=== PATIENT | female | born 1945 | race Caucasian/White ===

== ENCOUNTER 2017-02-17 14:24 | Inpatient (IN) ==
[2017-02-17 17:43] LABS: MANUAL DIFF NEEDED? NO
[2017-02-17 17:53] LABS: BASO% 0.4 % (0.0-0.8); EOS% 1.2 % (0.0-10.0); HEMATOCRIT 42.2 % (37.0-47.0); HEMOGLOBIN 14.4 g/dL (12.0-16.0); IMM GRAN# 0.08 X1000 (0.0-0.04); IMM GRAN% 0.5 % (0.0-0.5); LYMPH# 3.12 X1000 (1.2-3.4); MCH 32.7 PG (27-31); MCHC 34.1 g/dL (33-37); MCV 95.7 FL (81-99); MONO# 0.96 X1000 (0.11-0.59); MONO% 5.5 % (1.7-9.3); NEUT% 74.4 % (42.2-75.2); PLT 559 X1000 (130-400); RBC 4.41 XMIL (4.2-5.4)
[2017-02-17 17:55] LABS: INR 0.99; PROTIME 10.4 Seconds (9.2-11.7)
[2017-02-17 18:08] LABS: ALBUMIN 3.5 g/dL (3.5-5.0); CALCIUM 8.8 mg/dL (8.8-10.2); POTASSIUM 3.7 mmol/L (3.5-5.1); TOTAL BILIRUBIN 0.39 mg/dL (0.20-1.00)
[2017-02-17] MEDS: PROTONIX IV SCH (18:24)
[2017-02-17] MEDS: NS 1,000 ML IV SCH (18:24)
[2017-02-17] MEDS: FLAGYL 500 MG/NS 500 MG/100 ML IVPB IV SCH (18:24)
[2017-02-17] MEDS: LEVAQUIN 500 MG/D5W 500 MG/100 ML IVPB IV SCH (21:05)
--- NOTE | 2017-02-17 22:02 | HISTORY AND PHYSICAL ---
CHIEF COMPLAINT: Left lower quadrant pain. Fever. Associated with nausea, not eating. Last bowel movement 2 days ago. HISTORY OF PRESENT ILLNESS: She is a 71-year-old pleasant white female who was evaluated in my office today with two week history of lower abdominal pain, fever for the last 2 weeks. The patient is very tender. She has kidney stones and diverticulitis. She was seen before by Dr. Quintana and Dr. Shannon. Basically admitted to the hospital for possible diverticulitis and possible stone. White cell count is high. She is started on IV fluids and waiting for the CT scan of the abdomen and pelvis. Based on the CT, further recommendations will be followed. PAST MEDICAL HISTORY: Atypical chest pain. Last stress test was negative in March 2005. Hypertension. Kidney stones. History of rheumatoid arthritis under the care of Dr. Khan. Paroxysmal SVT. Tobacco abuse. PAST SURGICAL HISTORY: Hemorrhoidectomy. Gallbladder surgery. Hysterectomy. Four back surgeries. MEDICATIONS IN MY OFFICE: Amlodipine 5 mg daily, benazepril 40 daily, Klonopin 0.5 b.i.d., Flexeril 10 at bedtime, , folic acid 400 mcg daily, loratadine 10 mg daily, methotrexate 2.5 mg 4 tablets once a week by Dr. Khan, metoprolol 50 b.i.d., [place] 10, 3 times daily, potassium citrate 1 tablet daily, Dyazide 1 tablet daily, vitamin B12, 1 tablet daily. ALLERGIES: Demerol. Morphine. IV and contrast dyes. SOCIAL HISTORY: Lives in [place]. 2 kids. Smoking half a pack a day for 40 years. No alcohol abuse. FAMILY HISTORY: Father at the age of 88. Mom of aneurysm of the brain at 62. HEALTH MAINTENANCE: Flu vaccine declined. Pneumonia vaccine declined. Last mammography 2007. REVIEW OF SYSTEMS: HEENT: No headache. No vision problem. No earache. No sore throat. Neck: No goiter. No lymphadenopathy. No bruit. Cardiopulmonary: No chest pain, shortness of breath, PND, orthopnea. Gastrointestinal: Nausea, abdominal pain on the left side. No diarrhea. Last BM was yesterday. : History of kidney stones. No hematuria or dysuria. Extremities: No swelling of feet. Chronic back pain and joints under Dr. Khan. Neurologic: No focal symptoms or weakness. PHYSICAL EXAMINATION: VITAL SIGNS: Stable. 5 feet 3, 146 pounds. HEENT: Atraumatic, normocephalic. Pupils are equal, reactive to light. Dry mucous membranes. NECK: Supple. No lymphadenopathy. No goiter. No bruit. CHEST: Bilateral air entry. No rales, no wheezing. HEART: Sounds are regular. ABDOMEN: Belly is soft. Tender in the left lower quadrant with slightly guarding. No signs of peritonitis. RECTAL: Deferred. EXTREMITIES: No peripheral edema, cyanosis, clubbing. NEUROLOGIC: No obvious deficits noted. INVESTIGATIONS: White cell count 17, hematocrit 42, platelets 559,000. PT/INR is normal. SMA7 is normal. Creatinine 1. Glucose 113, LFTs were normal. Urinalysis pending. CT scan of the abdomen and pelvis pending. ASSESSMENT AND PLAN: 1. A 71-year-old white female, admitted to the hospital with left lower quadrant pain, elevated white cell count in context of previous diverticulitis and kidney stones. Plan is intravenous fluids, intravenous antibiotics. Based on the computed tomography, further recommendations will be followed. 2. Chronic tobacco abuse. Quit smoking. 3. Vitamin B12 deficiency. On replacement. 4. History of paroxysmal supraventricular tachycardia under the care of Dr. Galdamez , on metoprolol. 5. Hypertension, on Lotensin and amlodipine. 6. Postmenopausal, on hormone replacement therapy. 7. Rheumatoid arthritis, on methotrexate and folic acid by Dr. Khan. 8. History of vocal polyps, stable. 9. Right thyroid nodule was negative. 10. Chronic anxiety, on anxiolytics. I will follow up. cc: Jeremy Badillo MD MTDD
[2017-02-17] MEDS: NORCO-10 PO PRN (22:34)
[2017-02-17] MEDS: NICODERM PATCH TD SCH (22:34)
[2017-02-18] MEDS: FLAGYL 500 MG/NS 500 MG/100 ML IVPB IV SCH ×3 (03:16→18:19)
[2017-02-18] MEDS: NORCO-10 PO PRN (03:16)
[2017-02-18 05:20] LABS: ALLEN TEST YES; BE 0.3 mmoll (-3.0-3.0); BLOOD TYPE ARTERIAL; DRAW SITE R RADIAL; PCO2(98.6) 38 mmHg (35-45); PO2(98.6) 71 mmHg (60-100); SAMPLE BLOOD; SAO2 97.9 % (95.0-100.0); THB 12.9 g/dL (11.5-17.4); pH(98.6) 7.42 (7.35-7.45)
[2017-02-18 05:21] LABS: MODALITY ROOM AIR
[2017-02-18 06:51] LABS: MANUAL DIFF NEEDED? NO
[2017-02-18 07:03] LABS: BASO% 0.4 % (0.0-0.8); EOS% 4.1 % (0.0-10.0); HEMATOCRIT 37.9 % (37.0-47.0); HEMOGLOBIN 12.8 g/dL (12.0-16.0); IMM GRAN# 0.04 X1000 (0.0-0.04); IMM GRAN% 0.3 % (0.0-0.5); LYMPH# 2.81 X1000 (1.2-3.4); MCH 32.5 PG (27-31); MCHC 33.8 g/dL (33-37); MCV 96.2 FL (81-99); MONO# 1.21 X1000 (0.11-0.59); MONO% 9.9 % (1.7-9.3); NEUT% 62.3 % (42.2-75.2); PLT 499 X1000 (130-400); RBC 3.94 XMIL (4.2-5.4)
[2017-02-18 07:25] LABS: AGAP 11; BUN 15 mg/dL (8-22); CALCIUM 8.5 mg/dL (8.8-10.2); CHLORIDE 100 mmol/L (98-107); COSMO 274; POTASSIUM 3.5 mmol/L (3.5-5.1); SODIUM 137 mmol/L (136-145); TCO2 26 mmol/L (25-35)
[2017-02-18] MEDS ORDERED: ZOFRAN IV PRN (08:03)
--- NOTE | 2017-02-18 08:25 | Diag Imaging Result Document ---
PROCEDURE NAME: ABDOMEN/PELVIS W/O CONTRAST - 02/17/2017 CT UROGRAM WITHOUT CONTRAST: FINDINGS: There are atelectatic and fibrotic changes in the lung bases. There is a calcified granuloma in the left posterior costophrenic sulcus. The atelectasis is slightly worse than on 05/23/2016. There are granulomata in the spleen. There is extensive vascular calcification including pipe stem type calcification in the celiac and proximal superior mesenteric artery. There are also dense calcifications in the proximal renal arteries bilaterally. Postsurgical changes are seen in the lower lumbar spine which produce some beam-hardening artifact. There is an apparent cystic lesion in the posterior right hepatic lobe which has not changed significantly since the previous study. There are renal vascular calcifications on the left side. There may be a stone in the collecting system of the right kidney. However there are also likely vascular calcifications within the kidney. No hydronephrosis is present. There is no evidence of bowel obstruction. There is some stranding around the descending colon as well as diverticula and apparent mucosal thickening. This is more prominent than on the previous study. There is marked inflammatory change in the fat around the sigmoid colon where there are numerous large diverticula. This is likely to represent a focus of diverticulitis which was not present at the time of the previous study. No discrete abscess is identified. There is no evidence of free fluid. There is some heterotopic bone formation adjacent to the ischial tuberosities. This was also present previously. There are spondylotic changes in the lumbar spine. No acute bony abnormalities are demonstrated. IMPRESSION: Mild sigmoid diverticulitis. No evidence of obstructive uropathy. Right nephrolithiasis. Slightly worsened right lower lobe atelectasis. The findings were discussed with Dr. Badillo at 0730 hours.
[2017-02-18] MEDS: SODIUM CHLORIDE 0.9% INJ SCH ×2 (08:28→18:19)
[2017-02-18] MEDS: NICODERM PATCH TD SCH (08:29)
[2017-02-18] MEDS: NS 1,000 ML IV SCH (11:20)
[2017-02-18] MEDS: KLONOPIN PO SCH ×2 (13:19→21:04)
[2017-02-18] MEDS: PROTONIX IV SCH (18:19)
--- NOTE | 2017-02-18 19:33 | PROGRESS NOTE ---
DATE: 02/18/2017 SUBJECTIVE: Interval history: Patient continues to have left lower quadrant pain. CT scan of the abdomen and pelvis was done. She had nausea this morning. She is withdrawing from chronic pain medications. REVIEW OF SYSTEMS: HEENT: No headache. No dizziness. Cardiopulmonary: No chest pain. No shortness of breath. Gastrointestinal: Left lower quadrant pain. No bleeding per rectum. Genitourinary: No history of hesitancy, frequency. Extremities: No swelling of feet. Neurologic Examination: No obvious focal weakness. PAST MEDICAL HISTORY: Reviewed. PAST SURGICAL HISTORY: Reviewed. MEDICATIONS: Reviewed. PHYSICAL EXAMINATION: Vital Signs: She is afebrile, blood pressure is 150/64, not in respiratory distress. HEENT Examination: Within normal limits. Neck: Supple. No lymphadenopathy. Chest: Clear to auscultation. Heart: Sounds are regular. Abdomen: Belly is soft. Tender in the left lower quadrant area. No signs of peritonitis. Extremities: No peripheral edema, cyanosis, clubbing. Neurologic: No obvious neurological deficits. INVESTIGATIONS: White cell count 12, hematocrit 37, platelets 499,000. ABG on room air: pH is 7.42, pCO2 of 38 PO2 of 71, bicarbonate 25, SMA 7 is normal, calcium 8.5. CT scan of the abdomen and pelvis reviewed with radiologist, Dr. Barajas. Sigmoid diverticulitis. No obstructive uropathy noted. Right kidney stones. Slight worsening of right lower lobe atelectasis. ASSESSMENT AND PLAN: 1. Abdominal pain due to sigmoid diverticulitis. Continue IV Levaquin and IV Flagyl. 2. Dehydration. IV fluids. 3. History of kidney stones, stable. 4. Diet: Clear liquids. 5. Resume her home medications with Percocet and Klonopin. 6. Nausea. We will use the Zofran as needed and slowly reconcile her home medications. LEVEL OF DOCUMENTATION: 35 minutes. cc: Jeremy Badillo MD
[2017-02-18] MEDS ORDERED: KLONOPIN PO SCH (21:00)
[2017-02-18] MEDS: LEVAQUIN 500 MG/D5W 500 MG/100 ML IVPB IV SCH (21:04)
[2017-02-18] MEDS: NORVASC PO SCH (23:41)
[2017-02-19] MEDS: FLAGYL 500 MG/NS 500 MG/100 ML IVPB IV SCH ×3 (02:13→18:13)
[2017-02-19 06:36] LABS: MANUAL DIFF NEEDED? NO
[2017-02-19 06:51] LABS: BASO% 0.6 % (0.0-0.8); EOS# 0.41 X1000 (0.0-0.7); EOS% 4.7 % (0.0-10.0); HEMATOCRIT 39.2 % (37.0-47.0); HEMOGLOBIN 13.1 g/dL (12.0-16.0); IMM GRAN# 0.02 X1000 (0.0-0.04); IMM GRAN% 0.2 % (0.0-0.5); LYMPH# 2.12 X1000 (1.2-3.4); LYMPH% 24.3 % (20.5-51.1); MCH 32.2 PG (27-31); MCHC 33.4 g/dL (33-37); MCV 96.3 FL (81-99); MONO# 1.19 X1000 (0.11-0.59); MONO% 13.7 % (1.7-9.3); MPV 9.3 FL (7.4-10.4); NEUT% 56.5 % (42.2-75.2); PLT 496 X1000 (130-400); RBC 4.07 XMIL (4.2-5.4)
[2017-02-19] MEDS ORDERED: FOLIC ACID PO SCH (09:00)
[2017-02-19] MEDS ORDERED: LOTENSIN PO SCH (09:00)
[2017-02-19] MEDS ORDERED: VITAMIN B-12 PO SCH (09:00)
[2017-02-19] MEDS ORDERED: ESTRACE PO SCH (09:00)
[2017-02-19] MEDS ORDERED: LOPRESSOR PO SCH (09:00)
--- NOTE | 2017-02-19 09:01 | PROGRESS NOTE ---
DATE: 02/19/2017 SUBJECTIVE: Patient is slowly improving. Abdominal pain is improving. REVIEW OF SYSTEMS: Complains of shoulder pain, back pain, ongoing chronic joint pains. Denies of any chest pain. PHYSICAL EXAMINATION: Vital Signs: Stable, afebrile. Pulse is 74, blood pressure is 160/82. HEENT: Examination within normal limits. Neck: Supple. No lymphadenopathy. Chest: Clear to auscultation. Heart: Heart sounds are regular. Abdomen: Belly is soft and decreased tenderness in the left lower quadrant. No signs of peritonitis. Neurologic: Examination nonfocal. INVESTIGATIONS: White cell count came down to 8.7, hematocrit 39, platelets 496,000. ABG: PH is 7.42, pCO2 38, PO2 71. SMA 7 is normal. ASSESSMENT AND PLAN: 1. Diverticulitis is improving on Levaquin and Flagyl. Advance the diet as tolerated. 2. Reconcile home medications. 3. Chronic pain, on Percocet. 4. Followup on urine cultures is negative and will be discharged in the morning if she tolerates the diet. Followup outpatient. 5. Level of documentation, 25 minutes. cc: Jeremy Badillo MD
[2017-02-19] MEDS: NORVASC PO SCH ×2 (09:27→20:54)
[2017-02-19] MEDS: NICODERM PATCH TD SCH (09:27)
[2017-02-19] MEDS: KLONOPIN PO SCH ×2 (09:28→20:54)
[2017-02-19] MEDS: NS 1,000 ML IV SCH ×2 (09:33→16:26)
[2017-02-19] MEDS: PERCOCET-10 PO PRN ×3 (15:54→22:10)
[2017-02-19] MEDS: PROTONIX IV SCH (18:14)
[2017-02-19] MEDS: SODIUM CHLORIDE 0.9% INJ SCH (18:14)
[2017-02-19] MEDS: LEVAQUIN 500 MG/D5W 500 MG/100 ML IVPB IV SCH (20:54)
[2017-02-20] MEDS: FLAGYL 500 MG/NS 500 MG/100 ML IVPB IV SCH (02:09)
[2017-02-20 04:39] VITALS: BP 181/76
[2017-02-20] MEDS: NS 1,000 ML IV SCH (05:18)
[2017-02-20] MEDS: PERCOCET-10 PO PRN (06:44)
[2017-02-20] MEDS ORDERED: PNEUMOVAX 23 IM ONE (08:21)
--- NOTE | 2017-02-20 22:15 | DISCHARGE SUMMARY ---
ADMISSION DATE: 02/17/2017 DISCHARGE DATE: 02/20/2017 DISCHARGING DIAGNOSIS: Abdominal pain due to sigmoid diverticulitis. SECONDARY DIAGNOSES: 1. Hypertension. 2. History of kidney stones. 3. History of rheumatoid arthritis. 4. Paroxysmal supraventricular tachycardia. 5. Tobacco abuse. BRIEF HISTORY: Please see the H and P that was done on 02/17/2017. In brief, she is a 71-year- old pleasant white female with above problems who was admitted directly from my office with a 2- week history of abdominal pain, fever, nausea and vomiting. She has a history of diverticulosis and kidney stones. She was tender in the left lower quadrant. She has elevated white cell count 17,000. Basically, admitted to the hospital. HOSPITAL COURSE: She was given IV fluids, and she was diagnosed with diverticulitis without any perforation or abscess after CT of the abdomen and pelvis. She was treated with IV Levaquin and Flagyl. Subsequently her symptoms are much improved. She is tolerating the diet very well. LABORATORY: At the time of discharge, the labs as follows: CBC: White cell count 8.7, hematocrit 39, platelets 496,000. ABG: PH is 7.42, pCO2 38, PO2 71, bicarb 25. SMA7: Sodium 137, potassium 3.5, chloride 100, BUN 15, creatinine 0.7, calcium 8.5. LFTs were normal. Urine is mixed [place]. RADIOLOGY PROCEDURES: CT scan of the abdomen and pelvis: Mild sigmoid diverticulitis. No evidence of obstructive uropathy. Right-sided kidney stones. Slightly worsened right lower lobe atelectasis. DISCHARGE INSTRUCTIONS: 1. Patient was given pneumococcal vaccine 02/20/2017. 2. Amlodipine 5 mg p.o. b.i.d. 3. Estradiol 1 mg daily. 4. Klonopin 0.5 p.o. b.i.d. 5. Lotensin 40 mg daily. 6. Methotrexate 2.5 mg, 6 tablets once a week. 7. Folic acid 0.4 mg daily. 8. [place] [address] q.[address] Khan. 9. Dyazide 1 tablet daily. 10. Potassium 1 tablet p.o. b.i.d. 11. Vitamin B12 1000 mcg daily. 12. Metoprolol 50 daily. 13. Levaquin 500 daily for 7 days. 14. Flagyl 500 t.i.d. 15. Diflucan 100 daily. FOLLOWUP: Followup outpatient colonoscopy with Dr. Stratton. Follow up with Dr. Khan for chronic pain. Follow up in my office next week. cc: MD Patrick Julio MD Khurshid Yousuf, MD
== END 2017-02-20 11:02 | disposition home or self-care (01) ==
LOC: DIRADM 14:24 → 3N 16:57
PROVIDERS: ADMIT Internal Medicine; ATTEND Internal Medicine

== ENCOUNTER 2018-11-19 07:29 | Inpatient (IN) ==
--- NOTE | 2018-11-16 14:18 | EKG Report ---
Test Performed on : 11/16/2018 2:02:56 PM Test Reason : PAT Blood Pressure : / mmHG Vent. Rate : 066 BPM Atrial Rate : 066 BPM P-R Int : 196 ms QRS Dur : 078 ms QT Int : 430 ms P-R-T Axes : 063 075 082 degrees QTc Int : 450 ms Normal sinus rhythm. Normal ECG When compared with ECG of 06-NOV-2018 13:42, (Unconfirmed) T wave inversion no longer evident in Inferior leads Confirmed by Catherine LAYNE, Gian Gutierrez ([id number]) on 11/16/2018 10:34:46 PM
[2018-11-16 14:37] LABS: HEMATOCRIT 43.5 % (37.0-47.0); HEMOGLOBIN 14.6 g/dL (12.0-16.0); MCH 30.6 PG (27-31); MCHC 33.6 g/dL (33-37); MCV 91.2 FL (81-99); MPV 9.1 FL (7.4-10.4); RBC 4.77 XMIL (4.2-5.4); WBC 9.3 X1000 (4.8-10.8)
[2018-11-16 15:13] LABS: AGAP 12; BUN 9 mg/dL (8-22); CHLORIDE 101 mmol/L (98-107); COSMO 271; CREATININE 0.5 mg/dL (0.5-0.9); ESTIMATED GFR > 60; GLUCOSE 100 mg/dL (70-104); POTASSIUM 3.9 mmol/L (3.5-5.1); SODIUM 136 mmol/L (136-145); TCO2 23 mmol/L (25-35)
[2018-11-19] MEDS ORDERED: REGLAN ONE (08:09)
[2018-11-19] MEDS ORDERED: PEPCID ONE (08:09)
[2018-11-19] MEDS ORDERED: KEFZOL 1 GM/D5W 1 GM/50 ML IVPB ONE (08:10)
[2018-11-19] MEDS ORDERED: LR 1,000 ML ONE ×2 (08:10→09:52)
[2018-11-19] MEDS ORDERED: QUELICIN (DOSE) ONE (09:00)
[2018-11-19] MEDS ORDERED: DIPRIVAN 1% ONE (09:00)
[2018-11-19] MEDS ORDERED: XYLOCAINE-MPF 2% ONE (09:00)
[2018-11-19] MEDS ORDERED: FENTANYL ONE (09:10)
[2018-11-19] MEDS ORDERED: HEPARIN ONE ×2 (10:08)
[2018-11-19] MEDS ORDERED: KEFZOL ONE (10:08)
[2018-11-19] MEDS ORDERED: NS 2,000 ML ONE (10:08)
[2018-11-19] MEDS ORDERED: ROBINUL ONE ×3 (10:47→11:51)
[2018-11-19] MEDS ORDERED: ATROPINE ONE (10:55)
[2018-11-19] MEDS ORDERED: HEPARIN (DOSE) ONE (10:56)
[2018-11-19] MEDS ORDERED: EPHEDRINE ONE (10:57)
[2018-11-19] MEDS ORDERED: NEO-SYNEPHRINE ONE (11:28)
[2018-11-19] MEDS ORDERED: OFIRMEV 1000 MG/ISOTONIC SOLN 1,000 MG/100 ML BOTTLE ONE (11:30)
[2018-11-19 11:33] LABS: URINE SOURCE CATH
[2018-11-19 11:40] LABS: BILIRUBIN URINE NEGATIVE (NEGATIVE); BLOOD URINE NEGATIVE (NEGATIVE); COLOR STRAW; GLUCOSE URINE NEGATIVE (NEGATIVE); KETONE URINE NEGATIVE (NEGATIVE); LEUKOCYTES URINE NEGATIVE (NEGATIVE); NITRITE URINE NEGATIVE (NEGATIVE); PROTEIN URINE NEGATIVE (NEGATIVE); TURBIDITY URINE CLEAR (CLEAR); UR EPITHELIAL CELLS <10 /HPF (<10); URINE BACTERIA NEGATIVE /HPF; URINE RBC <10 /HPF (<10); URINE WBC <10 /HPF (<10); UROBILINOGEN URINE NORMAL (NORMAL)
[2018-11-19] MEDS ORDERED: NEOSTIGMINE ONE ×2 (11:51→11:55)
[2018-11-19] MEDS: ZOFRAN ONE ×2 (12:15→14:28)
--- NOTE | 2018-11-19 12:28 | EKG Report ---
Test Performed on : 11/19/2018 12:24:17 PM Test Reason : ekg CHANGES Blood Pressure : / mmHG Vent. Rate : 063 BPM Atrial Rate : 063 BPM P-R Int : 198 ms QRS Dur : 078 ms QT Int : 468 ms P-R-T Axes : 084 035 081 degrees QTc Int : 478 ms Normal sinus rhythm. Normal ECG When compared with ECG of 16-NOV-2018 14:02, No significant change was found Confirmed by Catherine LAYNE, Gian Gutierrez ([id number]) on 11/19/2018 7:43:57 PM
[2018-11-19] MEDS ORDERED: NS 1,000 ML ONE (13:29)
[2018-11-19] MEDS ORDERED: NS 1,000 ML IV SCH (13:30)
[2018-11-19 13:34] LABS: AGAP 13; BUN 8 mg/dL (8-22); CALCIUM 9.5 mg/dL (8.8-10.2); CHLORIDE 99 mmol/L (98-107); COSMO 271; CREATININE 0.6 mg/dL (0.5-0.9); ESTIMATED GFR > 60; GLUCOSE 84 mg/dL (70-104); MAGNESIUM 1.9 mg/dL (1.5-2.7); POTASSIUM 4.2 mmol/L (3.5-5.1); SODIUM 137 mmol/L (136-145); TCO2 25 mmol/L (25-35)
--- NOTE | 2018-11-19 13:41 | OPERATIVE NOTE ---
PROCEDURE DATE : 11/19/2018 NAME OF THE PROCEDURE: Percutaneous right iliac below-knee angioplasty and stent placement. SURGEON: Cam Owen MD. PUBLIC RELATIONS COORDINATOR: FREDDY Chong. PREOPERATIVE DIAGNOSIS: Right external iliac occlusion. POSTOPERATIVE DIAGNOSIS: Right external iliac occlusion. INDICATION: A 73-year-old smoker with right external iliac occlusion and severe claudication in the right leg. DESCRIPTION OF PROCEDURE: Satisfactory general endotracheal anesthesia was achieved. Bilateral groins, lower abdomen, and thighs were prepped and draped in sterile fashion. We did an ultrasound of the right groin, identified the right common iliac. There was some flow in it. We did access the artery under ultrasound guidance and passed a wire followed by a 6-[place] sheath. We shot a retrograde arteriogram showing an occlusion of the right external iliac right at the inguinal ligament. We then passed a glidewire up, and it went easily through the occlusion into the aorta. We followed this with a straight 5-[place] sheath to prove we were in the [place] aorta. We then replaced our glidewire and switched to a pigtail. We then shot an aortogram revealing the external iliac occlusion that was about a 10 cm occlusion from the takeoff of the external down to the inguinal ligament. I then chose a 7 mm x 10 mL Powerflex balloon and passed it across the occlusion and ballooned to nominal pressures at 8 atmospheres for one minute. Completion arteriogram revealed per extravasation of the artery in its mid aspect. I then obtained a covered stent and we felt like an 8 was the closest that we had to match the artery, so we chose an 8 x 38 mm iCast stent by [employer]. We had to switch to a 7-[place] sheath, and then after we switched to a 7-[place] sheath, we passed the covered stent up to the appropriate position in the external iliac and deployed it to nominal pressure. We then shot our retrograde arteriogram again, and there was no further extravasation. This 38 mm stent was not enough to treat the whole length of the occlusion, so then I obtained a 7 x 40 mm S.M.A.R.T. Control stent to complete the extent of the occluded area. We deployed it and then post dilated it with a 7 x 4 balloon. Retrograde arteriogram then showed complete resolution of the occluded external iliac with retrograde flow into the [place] aorta with resolution of any narrowing. We then used a Mynx closure device according to manufacturing specifications and deployed it. We then held pressure in the groin for 6 minutes. Hemostasis was satisfactory. A good pulse was present. A pressure dressing was applied. She tolerated the procedure satisfactorily and was sent to the recovery room in satisfactory condition. We gave 127 mL of contrast. cc: Cam Owen MD
--- NOTE | 2018-11-19 13:43 | Diag Imaging Result Doc PS360 ---
EXAM: CHEST-PORTABLE 11/19/2018 HISTORY: copd, bradycardia, post-op TECHNIQUE: AP portable at 1335 COMMENT: There are scattered calcified granulomata. The inspiration is less optimal than on 11/17/2012 but otherwise there has been no significant change. IMPRESSION: Stable chest. Electronically signed by Nick Barajas 11/19/2018 1:41 PM
[2018-11-19 13:58] LABS: HEMATOCRIT 29.3 % (37.0-47.0); HEMOGLOBIN 9.5 g/dL (12.0-16.0); MCH 30.5 PG (27-31); MCHC 32.4 g/dL (33-37); MCV 94.2 FL (81-99); MPV 9.2 FL (7.4-10.4); RBC 3.11 XMIL (4.2-5.4); RDW 14.7 % (11.5-14.5); WBC 10.94 X1000 (4.8-10.8)
[2018-11-19] MEDS ORDERED: ZOFRAN IV PRN (13:59)
[2018-11-19] MEDS ORDERED: ALBUMIN 25% IV ONE (14:04)
[2018-11-19] MEDS ORDERED: TEARISOL OPH SOLUTION BOTH EYES PRN (14:47)
[2018-11-19] MEDS: NORCO-7.5 PO PRN (15:19)
[2018-11-19] MEDS ORDERED: VASELINE TOP PRN (15:50)
[2018-11-19] MEDS: NS 1,000 ML IV SCH (19:10)
--- NOTE | 2018-11-19 19:32 | CARDIOLOGY CONSULTATION ---
DATE: 11/19/2018 REQUESTING PHYSICIANS: Hospitalist service. REASON FOR CONSULTATION: Patient with bradycardia and hypotension following surgery. HISTORY OF PRESENT ILLNESS: Ms. Esposito is a 73-year-old female who presented today for elective percutaneous intervention to the right iliac artery. This was done successfully by Dr. Owen; however, perioperatively she developed an episode of abrupt bradycardia and low blood pressure. She was given Cl-Synephrine, atropine and IV fluids, and now her blood pressure has recovered to the low 90s. She is complaining of back pain. She denies having any major chest discomfort or shortness of breath, palpitations or syncope. The patient was doing fine, and in fact she was seen by Dr. Galdamez at the office on 10/20/2018 for followup for her condition. She had taken a nuclear stress test and an echocardiogram in January 2018, and she was deemed to be fit to proceed with general anesthesia. PAST MEDICAL HISTORY: 1. Positive for moderate coronary artery disease. She has had a left heart catheterization in December 2011 that showed a 20% LAD lesion and a 30% proximal right coronary artery lesion. 2. She has severe peripheral vascular disease. 3. She has a vocal cord polyp. 4. She has had chronic back pain. 5. Supraventricular tachycardia. 6. Hypertension. 7. COPD. PAST SURGICAL HISTORY: 1. Multiple back surgeries. 2. Hemorrhoidectomy. 3. Cholecystectomy . 4. Hysterectomy. SOCIAL HISTORY: She is , retired. Lives at home. She is a tobacco user, half a pack a day for 40 years. FAMILY HISTORY: Mother had a brain aneurysm at age 62. ALLERGIES: Multiple drugs, adhesive tape, iodine, meperidine and morphine. HOME MEDICATIONS: 1. Amlodipine 5 mg twice a day. 2. Benazepril 40 mg daily. 3. Cilostazol 100 daily. 4. Clonazepam 0.5 mg twice a day. 5. Metoprolol 50 mg twice a day. 6. Tizanidine 4 mg twice a day. 7. Tramadol 50 mg twice a day 8. Triamterene 37.5-25 daily. REVIEW OF SYSTEMS: She has had claudication. She has had no other major positives in the cardiovascular system. PHYSICAL EXAMINATION: Vital Signs: Blood pressure is 93/60, pulse 58, temperature 97.3, respirations 16. General: She is awake and alert, in no distress. HEENT: Unremarkable. Chest: Diminished breath sounds diffusely. Cardiovascular: Heart sounds are regular and rhythmic, distant. No gallop or murmur is noted. Abdomen: Slightly tender in the right lower quadrant, where she has some dressing close to it. Extremities: Showed fairly good popliteal pulses bilaterally. The distal dorsalis pedis pulses appear to be markedly diminished. Neurologic: Follows commands and moves 4 extremities. BLOOD WORK: Hemoglobin 9.5, hematocrit 29.3. Sodium 137, potassium 4.2, BUN 8, creatinine 0.6. Troponin is negative. Magnesium level is 1.9. IMPRESSION: 1. Patient who presented with hypotension and bradycardia immediately after stenting to the iliac artery. This could be some sort of a vagal response. 2. Severe peripheral vascular disease with claudication. 3. History of moderate coronary atherosclerosis with negative stress test in January 2018. 4. History of hypertension. 5. History of being a tobacco user. 6. Chronic back pain. RECOMMENDATIONS: At this point in time I would watch her as you are doing and keep her on IV fluids. I would probably put her beta blockers on hold for a few hours and monitor her vital signs and cardiac enzymes as well as EKG. Her EKG showed no acute ischemic changes. Will follow her. Thank you for the opportunity to participate in her evaluation. cc: MD Cam Monte MD
[2018-11-19] MEDS: LOPRESSOR PO SCH (20:41)
[2018-11-19] MEDS: ULTRAM PO SCH (21:25)
[2018-11-19] MEDS: NORVASC PO SCH (21:25)
[2018-11-19] MEDS: ZANAFLEX PO SCH (21:25)
[2018-11-19] MEDS: KLONOPIN PO SCH (21:25)
[2018-11-20] MEDS: NORCO-7.5 PO PRN ×2 (01:42→10:00)
[2018-11-20] MEDS: NS 1,000 ML IV SCH (01:47)
--- NOTE | 2018-11-20 07:40 | GENERAL SURGERY PROGRESS NOTE ---
DATE: 11/20/2018 Ms. Esposito is doing generally well. Her heart rate is 70. Blood pressure is 125/57. She is awake, and alert, and oriented. She has a good femoral pulse. There was no significant hematoma. She has a very faintly palpable dorsalis pedis pulse on the right foot. Both legs are warm. She has had no episodes of hypotension during the night. Her cardiac enzymes have been negative. The plan then will be to discharge her. She is to return to see me in the office in a week. She knows to stay on her Pletal. cc: Cam Owen MD
--- NOTE | 2018-11-20 08:18 | EKG Report ---
Test Performed on : 11/20/2018 07:58:26 AM Test Reason : bradycardia, hypotension Blood Pressure : / mmHG Vent. Rate : 067 BPM Atrial Rate : 067 BPM P-R Int : 208 ms QRS Dur : 084 ms QT Int : 436 ms P-R-T Axes : 033 058 107 degrees QTc Int : 460 ms Normal sinus rhythm. Septal infarct (cited on or before 20-NOV-2018) Abnormal ECG When compared with ECG of 20-NOV-2018 07:58, (Unconfirmed) premature atrial complexes. are no longer present Confirmed by Catherine LAYNE, Gian Gutierrez ([id number]) on 11/21/2018 1:07:47 PM
[2018-11-20] MEDS ORDERED: PLETAL PO SCH (09:00)
[2018-11-20] MEDS ORDERED: LOTENSIN PO SCH (09:00)
[2018-11-20] MEDS ORDERED: DYAZIDE PO SCH (09:00)
[2018-11-20 09:28] LABS: BASO# 0.08 X1000 (0.0-0.2); BASO% 0.6 % (0.0-0.8); EOS# 0.25 X1000 (0.0-0.7); EOS% 1.9 % (0.0-10.0); HEMATOCRIT 24.9 % (37.0-47.0); HEMOGLOBIN 8.1 g/dL (12.0-16.0); IMM GRAN# 0.04 X1000 (0.0-0.04); IMM GRAN% 0.3 % (0.0-0.5); LYMPH# 3.27 X1000 (1.2-3.4); LYMPH% 24.3 % (20.5-51.1); MCH 30.6 PG (27-31); MCHC 32.5 g/dL (33-37); MONO# 1.05 X1000 (0.11-0.59); MONO% 7.8 % (1.7-9.3); MPV 9.4 FL (7.4-10.4); NEUT# 8.74 X1000 (1.4-6.5); NEUT% 65.1 % (42.2-75.2); PLT 465 X1000 (130-400); RBC 2.65 XMIL (4.2-5.4); RDW 14.2 % (11.5-14.5); WBC 13.43 X1000 (4.8-10.8)
[2018-11-20] MEDS: NORVASC PO SCH (10:00)
[2018-11-20] MEDS: ZANAFLEX PO SCH (10:00)
[2018-11-20] MEDS: KLONOPIN PO SCH (10:00)
[2018-11-20] MEDS: LOPRESSOR PO SCH (10:01)
[2018-11-20] MEDS: ULTRAM PO SCH (10:02)
--- NOTE | 2018-11-20 12:19 | CARDIOLOGY PROGRESS NOTE ---
DATE: 11/20/2018 CHIEF COMPLAINT: Bradycardia and hypotension. SUBJECTIVE: Ms. Esposito had an uneventful night. She is not having any chest pain. Her main complaint is just back pain. Dr. Owen already saw her this morning and he believes that the patient is stable for discharged. OBJECTIVE: Vital Signs: Her blood pressure this morning is 124/59, temperature 97.3, respirations 17, and pulse 64. General: She is awake, alert, and in no distress. HEENT: Unremarkable. Respiratory: Chest sounds clear to auscultation and percussion. Cardiovascular: Heart sounds are regular and rhythmic. I do not hear a gallop or murmur. Gastrointestinal: The abdomen is nontender. Extremities: The extremities show actually excellent posterior tibial pulse, dorsalis pedis pulse, and popliteal pulse in the right leg which is the one that Dr. Owen worked on yesterday morning. LABORATORY DATA: Laboratory work shows several troponin levels, a total of 3 were done and they are negative. Her first EKG was normal. A second EKG done this morning is unremarkable. Her C-reactive protein was normal. BUN, creatinine, and electrolytes are normal this morning. Hemoglobin today is 9.5. Hematocrit is 29.3. IMPRESSION: 1. Patient who suffered an episode of bradycardia and hypotension during percutaneous intervention to the iliac vessel. 2. History of coronary artery disease, moderate per heart catheterization done in 2011 with a stable pattern of symptoms and a negative stress test done in January of 2018. 3. Bradycardia probably secondary to beta blockers. 4. History of tobacco abuse with severe peripheral vascular disease. RECOMMENDATIONS: The patient is advised to quit smoking. We are doing an EKG this morning and if unchanged from a cardiac viewpoint she may go home. My only concern here is that there has been a 4 to 5 g drop of her hemoglobin between 11/16/2018 and 11/19/2018. The question of whether or not she may have had a bleed around the area of the intervention versus just a spurious value remains to be resolved. We will discuss that with Dr. Owen. cc: MD Cam Monte MD [facility]
[2018-11-20 13:24] VITALS: BP 109/48
== END 2018-11-20 14:24 | disposition home or self-care (01) | DRG 253 ==
LOC: SURHOLD 07:29 → ICU 13:59
PROVIDERS: ADMIT Surgery; ATTEND Surgery
CPT/HCPCS: 36200; 71010; 71045; 75625; 80048; 81001; 82550; 83735; 84484; 85025; 85027; 85651; 86140; 86850; 86900; 86901; 93005; 93010; A9270; C1725; C1760; C1874; C1876; J0131; J0330; J0461; J0690; J1644; J2370; J2405; J3010; J7030; J7120; P9047; Q9967